=== PATIENT | female | born 1985 | race Caucasian/White ===

== ENCOUNTER → 2016-10-17 | Outpatient (CLI) | payer BC | LOC: LAB 13:38 | PROVIDERS: ATTEND Family Medicine | DX: O09.893 Supervision of other high risk pregnancies, third trimester (principal); O36.0130 Maternal care for anti-D [Rh] antibodies, third trimester, not applicable or unspecified; Z3A.30 30 weeks gestation of pregnancy | CPT/HCPCS: 36415; 86850; 86900; 86901; J2790 ==

== ENCOUNTER → 2016-10-24 | Outpatient (CLI) | payer BC ==
--- NOTE | 2016-10-24 13:08 | DI ---
LIMITED OBSTETRICAL ULTRASOUND WITH JABARI AND GROWTH MEASUREMENTS, 10/24/2016 11:07 AM Clinical History: Uterine size/dates discrepancy in the third trimester. Size greater than dates. Previous Exam: 05/11/2016; 06/09/2016; 08/08/2016. ADJUSTED LMP: 03/18/2016. There is a single live IUP currently in vertex presentation. Amnionic fluid content is normal. Amniot ic fluid index is 15.4 cm. activity is observed as follows: Cardiac, extremity, and respiratory . The placenta is posterior corpus and Grade 1. heart rate is 136 beats/minute and regular. No abnormalities are noted. BPD, HC, AC, and FL measurements are 82 mm, 303 mm, 288 mm, and 62 mm, respectively. These measurements correspond to EGA values of 33 weeks 0 days, 33 weeks 5 days, 33 we eks 6 days, and 32 weeks 1 day, respectively. Composite EGA is 33 weeks 0 days. The [place] EDC is 7. EDC by adjusted LMP is 12/23/2016. LMP percentile is 80%. Estimated weight is 2034 g with a r rocky of plus or, 297 g. Readin. Single live fetus with vertex presentation and normal amniotic fluid content. Amniotic fluid inde x is 15.4 cm. Placenta is posterior corpus and grade 1. 2. The composite EGA is 33 weeks zero days with an ultrasound EDC of 12/12/2016 as opposed to the EDC of 12/23/2016 that is based on the adjusted LMP. 3. LMP percentile is 80%. Estimated weight is 2034 g, plus or minus, 297 g.
== END ==
LOC: US 11:01
PROVIDERS: ATTEND Family Medicine
DX: O26.843 Uterine size-date discrepancy, third trimester (principal); Z3A.31 31 weeks gestation of pregnancy
CPT/HCPCS: 76815

== ENCOUNTER → 2016-11-28 | Outpatient (CLI) | payer BC ==
--- NOTE | 2016-11-28 10:57 | DI ---
US OB , LIMITED,11/28/2016 9:05 AM: Clinical History: Excessive growth. Previous Exam: October 24, 2016 Findings: Multiple grayscale and color Doppler sonographic images are obtained through the pelvis demonstrating a single live intrauterine gestation in vertex presentation. Amniotic fluid level is normal. There is normal motion of the limbs and normal motion of the diaphragm. Detected Doppler heart tones measured 146 beats per minute. Amniotic fluid index measured 10.9 cm. Estimated gestational age was determined by a composite of bip arietal diameter, head circumference, abdominal circumference and femur length yielding an estimated gestational age by ultrasound of 37 weeks 6 days. Estimated weight was 3313 g (87th percentile). Impression: Single live intrauterine gestation with size 10 days greater than dates. Normal amniotic fluid index.
== END ==
LOC: US 08:55
PROVIDERS: ATTEND Family Medicine
DX: O36.63X0 Maternal care for excessive fetal growth, third trimester, not applicable or unspecified (principal); Z3A.36 36 weeks gestation of pregnancy
CPT/HCPCS: 76815

== ENCOUNTER → 2016-12-05 | Outpatient (CLI) | payer BC | LOC: MOB LAB 12:16 | PROVIDERS: ATTEND Family Medicine | DX: Z36 Encounter for antenatal screening of mother (principal); Z3A.37 37 weeks gestation of pregnancy | CPT/HCPCS: 87150 ==

== ENCOUNTER → 2016-12-14 | Outpatient (CLI) | payer BC ==
--- NOTE | 2016-12-14 19:16 | DI ---
LIMITED OBSTETRICAL ULTRASOUND, 12/14/2016 3:06 PM Clinical History: Uterine size-date discrepancy. Large for dates. Previous Exam: 11/28/2016. ADJUSTED LMP: 03/18/2016. There is a single live IUP currently in vertex presentation. Amnionic fluid content is is increased f or this stage of indicating polyhydramnios. Amniotic fluid index is 19.7 cm. activity is observed as follows: cardiac and extremity. The placenta is posterior corpus and Grade 2. h eart rate is 134 beats/minute and regular. Well formed distal femoral epiphyses are visualized. BPD, HC, AC, and FL measurements are 96 mm, 350 mm, 371 mm, and 78 mm, respectively. These measurements co rrespond to EGA values of 39 weeks 2 days, 40 weeks 6 days, 41 weeks 1 day, and 40 weeks 0 days, resp ectively. Composite EGA is 40 weeks 3 days. The [place] EDC is 12/11/2016. EDC by adjusted LMP is 12/23/2016. LMP percentile is 96%. Estimated weight is 4112 g, plus or minus, 600 g. Readin. Single live fetus with vertex presentation. Amniotic fluid content is increased indicating polyhy dramnios. Amnionic fluid index is 19.7 cm. Placenta is posterior corpus and grade 2. 2. The composite EGA is 40 weeks 3 days with an ultrasound EDC of 12/11/2016. Based on an ingested LMP of 03/18/2016, the EDC would be 12/23/2016. 3. LMP percentile is 96%. Estimated weight is 4112 g, plus or minus, 600 g.
== END ==
LOC: US 15:00
PROVIDERS: ATTEND Family Medicine
DX: O26.843 Uterine size-date discrepancy, third trimester (principal); Z3A.38 38 weeks gestation of pregnancy
CPT/HCPCS: 76815

== ENCOUNTER 2016-12-21 06:02 | Inpatient (IN) | payer BC ==
[~2016-12-21 06:02] MED LIST: CITRIC ACID/SODIUM CITRATE 30 ML CUP PO ONE; CefOXitin Inj 2 GM in Sodium Chloride 0.9% 100 ML IV ONE; Famotidine Inj 20 MG in Normal Saline Flush 10 ML IVP ONE; LIDOCAINE W/ SODIUM BICARB 0.5 ML SYR SUBD PRN; Lactated Ringers 1,000 ML PRIMARY IV SCH; Metoclopramide Inj 10 MG/2 ML VIAL IV ONE; NORMAL SALINE 10 ML SYRINGE FLUSH IVP PRN; Oxytocin 20 Units + LR 1,000 ML IV SCH
[2016-12-21] MEDS: Lactated Ringers 1,000 ML PRIMARY IV ONE ×2 (06:10→07:08)
[2016-12-21 06:39] LABS: HEMATOCRIT 38.3 % (37.0-47.0); HEMOGLOBIN 13.2 g/dL (12.0-16.0); MEAN CORPUSCULAR HEMOGLOBIN 30.6 PG (27-31); MEAN CORPUSCULAR HGB CONC 34.5 g/dL (33-37); MEAN PLATELET VOLUME 8.4 FL (7.4-12.2); RED BLOOD COUNT 4.31 10^6/uL (4.20-5.40)
[2016-12-21] MEDS ORDERED: ePHEDrine Inj 50 MG/ML AMP ONE (07:16)
[2016-12-21] MEDS ORDERED: Oxytocin 20 Units + LR 1,000 ML IV ONE ×2 (07:16→09:44)
[2016-12-21] MEDS ORDERED: Lactated Ringers 1,000 ML PRIMARY IV ONE ×3 (08:00→09:31)
[2016-12-21] MEDS ORDERED: ONDANSETRON 4 MG/2 ML VIAL ONE (08:23)
[2016-12-21] MEDS ORDERED: NORMAL SALINE 10 ML SYRINGE FLUSH IVP PRN (09:07)
[2016-12-21] MEDS ORDERED: HYDROmorphone 2 MG/1 ML IVP PRN (09:07)
[2016-12-21] MEDS ORDERED: PROMETHAZINE 25 MG/1 ML VIAL IM PRN (09:07)
[2016-12-21] MEDS ORDERED: fentaNYL Inj 100 MCG/2 ML VIAL IVP PRN (09:07)
[2016-12-21] MEDS ORDERED: Lactated Ringers 1,000 ML PRIMARY IV SCH (09:15)
[2016-12-21] MEDS ORDERED: KETOROLAC 30 MG/1 ML VIAL ONE (09:30)
[2016-12-21] MEDS ORDERED: ONDANSETRON 4 MG/2 ML VIAL IVP PRN (10:45)
[2016-12-21] MEDS ORDERED: MISOPROSTOL 200 MCG TABLET RECTAL ONE (10:45)
[2016-12-21] MEDS ORDERED: METHYLERGONOVINE MALEATE 0.2 MG/1 ML VIAL IM PRN (10:45)
[2016-12-21] MEDS ORDERED: Methylergonovine Tab 0.2 MG TAB PO PRN (10:45)
[2016-12-21] MEDS ORDERED: OXYTOCIN 10 UNIT/1 ML IM ONE (10:45)
[2016-12-21] MEDS ORDERED: CALCIUM CARBONATE 500 MG (TUMS) CHEWABLE TABLET PO PRN (10:45)
[2016-12-21] MEDS ORDERED: Naloxone Inj 0.01 MG, Sodium Chloride 0.9% vial 1 ML IVP PRN ×2 (10:45)
[2016-12-21] MEDS ORDERED: Famotidine Inj 20 MG in Normal Saline Flush 10 ML IVP PRN (10:45)
[2016-12-21] MEDS ORDERED: Carboprost Inj 250 MCG/ML AMP IM PRN (10:45)
[2016-12-21] MEDS ORDERED: Oxytocin 20 Units + LR 1,000 ML IV SCH (10:45)
[2016-12-21] MEDS ORDERED: diphenhydrAMINE 25 MG CAPSULE PO PRN (10:45)
[2016-12-21] MEDS ORDERED: Nalbuphine Inj 20 MG/ML Ampule IVP PRN (10:45)
[2016-12-21] MEDS ORDERED: LANOLIN HPA 40 GM TUBE TOPICAL PRN (10:45)
[2016-12-21] MEDS ORDERED: diphenhydrAMINE 50 MG/1 ML VIAL IV PRN (10:45)
[2016-12-21] MEDS ORDERED: DIPH,PERTUSS,TET(ADACEL) VAC/PF 0.5 ML (Tdap) IM SCH (10:45)
[2016-12-21] MEDS ORDERED: HYDROmorphone 2 MG/1 ML IV PRN (10:45)
[2016-12-21] MEDS: oxyCODONE-ACETAMINOPHEN 5-325 TAB PO PRN ×4 (11:41→23:59)
--- NOTE | 2016-12-21 12:02 | OB.OP.NOTE ---
Operative Report Surgeon: Fernando Escobar MD Cost Report Clerk: Fredy Marina MD Anesthesia Type: Regional Anesthesia Provider: Alvarado Willoughby CRNA Surgery Date: 12/21/16 Preoperative Diagnosis: Previous section Postoperative Diagnosis: 1. same, delivered. 2. anterior uterine fibroid. 3. Omental and peritoneal adhesions to uterus. Procedure: Repeat section, lysis of adhesions. Complications: none Estimated Blood Loss (mL): 650 Urine Output (mL): 300 Fluids: 1500 cc of LR Indications: We do not offer vaginal after section trials at our facility and the patient did not desire this. She is requesting a repeat section. Findings: 1. Female in cephalic presentation. 2. Anterior uterine fibroid. 3. Pelvic adhesions from omentum and perineum to uterus. Description of Procedure: The patient was taken to the operating room where spinal anesthesia was found to be adequate. She was then prepared and draped in the normal sterile fashion in the dorsal supine position with a leftward tilt. A Pfannenstiel skin incision was then made with the scalpel and carried through to the underlying layer of fascia with Bovie. The fascia was incised in the midline and the incision extended laterally with the Bovie. The superior aspect of the fascial incision was then grasped with Nahomy clamps, elevated and the underlying rectus muscles dissected off bluntly. Attention was then turned to the inferior aspect of this incision which in a similar fashion was grasped with Nahomy clamps and the rectus muscles dissected off both bluntly and with the Bovie. The rectus muscle were then in the midline, and the peritoneum identified, tented up, and entered in blunt fashion. The peritoneal incision was then extended superiorly and inferiorly with good visualization of the bladder. There was an anterior fibroid noted. To this fibroid were multiple adhesions of omentum and peritoneum from her previous surgery. After these were reduced with the Bovie and Cintron scissors, the Melvin retractor was then inserted and the vesicouterine peritoneum was identified. The lower uterine segment was incised in the transverse fashion with the scalpel. The uterine incision was then extended laterally blunt fashion. The fluid contained light meconium. The 's head and the rest of her body was delivered atraumatically. The nose and mouth were suctioned with the bulb suction and the cord clamped and cut. The infant was handed off to the awaiting nurse. Cord gases and cord blood were sent for analysis. The placenta was then removed manually; the uterus exteriorized, and cleared of all clots and debris. The uterine incision was repaired with 0 Vicryl in a running, locked fashion. A second layer of the same suture was used to obtain excellent hemostasis. The peritoneal cavity was then copiously irrigated with warm saline. The uterus was returned to the abdomen. The paracolic gutters were copiously irrigated with warm saline and a second look at the uterine incision continued to reveal excellent hemostasis. The peritoneum was closed with 3-0 Vicryl. The fascia was reapproximated with 0 PDS in a running fashion. The subcutaneous space was irrigated with copiously with warm saline and the closed first with 3-0 Vicryl rapide and then more superficially with Insorb absorbable sutures. The skin was reapproximated with Steri-Strips and a Silverlon dressing applied. Fundal massage was completed with no clots in vaginal vault. The patient tolerated the procedure well. Sponge, lap, and needle counts were correct x2. Mefoxin was given preoperatively less than one hour prior to incision time. The patient was taken to the recovery room in stable condition.
[2016-12-21] MEDS ORDERED: RHO(D) IMMUNE GLOBULIN 1500 UNIT(300 mcg)SYRIN IM PRN (15:17)
[2016-12-21] MEDS: KETOROLAC 30 MG/1 ML VIAL IVP PRN ×2 (15:58→22:05)
[2016-12-21] MEDS: NORMAL SALINE 10 ML SYRINGE FLUSH IVP PRN ×2 (15:59→22:06)
[2016-12-21] MEDS: D5-LR 1,000 ML PRIMARY IV SCH (19:34)
[2016-12-22] MEDS: D5-LR 1,000 ML PRIMARY IV SCH ×2 (03:30→19:25)
[2016-12-22] MEDS: oxyCODONE-ACETAMINOPHEN 5-325 TAB PO PRN ×5 (04:03→20:35)
[2016-12-22] MEDS: KETOROLAC 30 MG/1 ML VIAL IVP PRN ×2 (04:03→10:06)
[2016-12-22] MEDS: NORMAL SALINE 10 ML SYRINGE FLUSH IVP PRN (04:04)
[2016-12-22 06:34] LABS: HEMATOCRIT 32.2 % (37.0-47.0); HEMOGLOBIN 10.9 g/dL (12.0-16.0); MEAN CORPUSCULAR HEMOGLOBIN 30.8 PG (27-31); MEAN CORPUSCULAR HGB CONC 33.9 g/dL (33-37); MEAN PLATELET VOLUME 8.6 FL (7.4-12.2); RED BLOOD COUNT 3.54 10^6/uL (4.20-5.40)
[2016-12-22] MEDS: Prenatal Multivitamin Tab 1 TAB TAB PO SCH (09:27)
[2016-12-22] MEDS: HEPARIN 5000 UNIT/1 ML SUBCUT SCH ×2 (09:27→16:59)
[2016-12-22] MEDS: Senna/Docusate Tab 1 TAB TAB PO SCH ×2 (09:27→20:35)
--- NOTE | 2016-12-22 10:16 | CRNA.PROGR ---
Anesthesia Note Anesthesia Progress Note: Sitting up in bed with breakfast and phone. Has been ambulatory ad jeremy. Discussed anesthetic course and she has no questions or concerns regarding her anesthetic care. Laboratory Results 12/21/16 12/22/16 Range/Units 06:30 05:26 WBC 8.37 9.00 (4.8-10.8) 10^3/uL RBC 4.31 3.54 L (4.20-5.40) 10^6/uL Hgb 13.2 10.9 L (12.0-16.0) g/dL Hct 38.3 32.2 L (37.0-47.0) % MCV 88.9 91.0 (81-99) FL MCH 30.6 30.8 (27-31) PG MCHC 34.5 33.9 (33-37) g/dL RDW Std Deviation 44.6 44.8 (39-50) fL RDW Coeff of Alesha 14.1 14.1 (11.5-14.5) % Plt Count 197 159 (140-350) 10*3/uL MPV 8.4 8.6 (7.4-12.2) FL Blood Type O NEGATIVE O NEGATIVE Antibody Screen Positive Negative Antibody Identification Anti-D Screen Negative (NEG) Vital Signs (24 hrs) Temp Pulse Pulse Resp BP BP BP 12/22/16 05:14 12/22/16 05:00 97.8 F 78 16 98/59 12/21/16 21:00 97.5 F 100 16 113/65 12/21/16 19:00 100 12/21/16 16:36 98.2 F 84 20 112/62 12/21/16 13:00 103 H 103 H 20 113/63 113/63 12/21/16 12:15 107 H 16 104/69 12/21/16 11:45 83 20 127/65 12/21/16 11:30 91 20 126/59 12/21/16 11:13 75 20 118/73 12/21/16 10:45 74 20 126/67 12/21/16 10:30 82 20 114/64 Pulse Ox 12/22/16 05:14 97 12/22/16 05:00 97 12/21/16 21:00 97 12/21/16 19:00 12/21/16 16:36 97 12/21/16 13:00 98 12/21/16 12:15 97 12/21/16 11:45 100 12/21/16 11:30 100 12/21/16 11:13 100 12/21/16 10:45 100 12/21/16 10:30
[2016-12-22] MEDS: IBUPROFEN 800 MG TABLET PO PRN (16:14)
--- NOTE | 2016-12-22 16:41 | OB.PROGRES ---
Subjective Post Op Day: 1 Pain Management: PO Card Catheter: No Flatus: Yes Diet: Regular Feeding Method: pumping Ambulating: Yes Objective - General General Appearance: POSITIVE: No Acute Distress, Cooperative - Cardiovacular Cardiovascular Exam: POSITIVE: RRR, No Murmur Edema: +1 Pedal Edema Extremities: Negative Katrina's - Right Leg - Respiratory Respiratory Exam: POSITIVE: Clear to Auscultation - Bilaterally, Breathing Non Labored - Abdomen Bowel Sounds: Hypoactive Assesstment / Plan (1) delivery delivered Current Visit: Yes Status: Acute Assessment / Plan: -routine post-operative cares. -started heparin this morning for post-operative DVT prophylaxis due to BMI > 40. -pumping breast milk for pt. -needs to get rhogam due to baby's positive blood type. 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 -pt desires discharge home tomorrow to travel to [place] to be with her .
[2016-12-23] MEDS: oxyCODONE-ACETAMINOPHEN 5-325 TAB PO PRN ×3 (00:45→09:22)
[2016-12-23] MEDS: IBUPROFEN 800 MG TABLET PO PRN ×2 (00:45→08:11)
[2016-12-23] MEDS: HEPARIN 5000 UNIT/1 ML SUBCUT SCH ×2 (00:46→08:12)
[2016-12-23] MEDS: Senna/Docusate Tab 1 TAB TAB PO SCH (08:11)
[2016-12-23] MEDS: Prenatal Multivitamin Tab 1 TAB TAB PO SCH (08:11)
[2016-12-23 08:31] VITALS: RESP 16; TEMP 97.8
--- NOTE | 2016-12-23 09:32 | DCSUMMARY ---
Hospitalization Summary Admit Date: 12/21/16 Discharge Date: 12/23/16 Primary Diagnosis:: Previous section Secondary Diagnosis:: same, delivered Primary Surgery and Date: Repeat section on 12/21/16. Delivery Type: Hospital Course: Pt was admitted for repeat section at 39 5/7 weeks (per her request to wait until that point). For details of her surgery, please see op report elsewhere in the chart. / Postop Complications: The pt had a normal post-operative course. [place] Complications: Shortly after , it was noted that the nurse's were unable to pass a Delee suction past 10 cm. 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 Exam - Vitals Vital Signs: Vital Signs Temperature 97.8 F Temperature Source Oral Pulse Rate [Pulse Oximeter] 86 Pulse Rate 96 Respiratory Rate 16 Blood Pressure [Right Arm] 118/74 Blood Pressure [Left Arm] 112/62 Blood Pressure 113/63 Pulse Ox 96 Oxygen Delivery Method Room Air Height 5 ft 5 in Weight 245 lb 3.2 oz - General General Appearance: POSITIVE: No Acute Distress, Cooperative - Head Head Exam: POSITIVE: Normal Inspection - Eye Eye Exam: POSITIVE: Normal Appearance - ENT ENT Exam: POSITIVE: Normal Exam - Neck Neck Exam: POSITIVE: Normal Inspection - Respiratory Respiratory Exam: POSITIVE: Clear to Auscultation - Bilaterally, Breathing Non Labored - Cardiovascular Cardiovascular Exam: POSITIVE: RRR, No Murmur - GI/Abdominal GI/Abdominal Exam: POSITIVE: Normal Bowel Sounds, Non Tender, Non Distended, Soft - Extremities Extremities Exam: POSITIVE: Normal Capillary Refill, Negative Katrina's sign - Neurological Neurological Exam: POSITIVE: Alert, Oriented x 3 - Psychiatric Psychiatric Exam: POSITIVE: Normal Affect, Normal Mood, Flat Affect - Integumentary Integumentary Exam: POSITIVE: Normal Color, Warm, Dry Patient Problems - Patient Problem List (1) delivery delivered Status: Acute
== END 2016-12-23 09:40 | disposition home or self-care (01) | DRG 766 ==
LOC: OBOR 06:02 → OBIP 10:10 → UNDODISIN 12-23 09:40
PROVIDERS: ADMIT Family Medicine; ATTEND Family Medicine
PROC: 10D00Z1 Extraction of Products of Conception, Low, Open Approach (ICD-10-PCS; principal; 2016-12-21 08:00)
DX: O34.211 Maternal care for low transverse scar from previous cesarean delivery (principal); N85.8 Other specified noninflammatory disorders of uterus; Z3A.39 39 weeks gestation of pregnancy; Z37.0 Single live birth; D25.9 Leiomyoma of uterus, unspecified
CPT/HCPCS: 36415; 81003; 85027; 86850; 86870; 86900; 86901; 86970; 94150; 94761; J1170; J1644; J1885; J2405; J2765; J2790; J7050; J7120